=== PATIENT | male | born 1940 | race Caucasian/White ===

== ENCOUNTER → 2016-06-04 | Outpatient (CLI) | payer OTHER ==
[~2016-06-04] MED LIST: ASPIRIN325 PO; ASPIRIN81 M2 PO; AVAPRO 150 MG150 M1 PO; BACTROBAN CREAM30 G1 NASAL; BENICAR20 MG PO; CALCIUM CARBO1000 MG PO; CRESTOR40 MG PO; FERREX 150150 MG PO; FISH OIL 1,001000 M1 PO; MONOCAPS TABLE1 EACH PO; MULTI-VITAMIN1 EAC5 PO; PEPCID40 MG PO; PHISOHEX148 ML TOP; PLAVIX 75 MG TA75 M1 PO; SENNA PO; TOPROL XL25 MG PO; TOPROL XL50 MG PO; VICODIN 5-3001 EACH PO; VITAMIN D1000 UNI1 PO; VITAMIN K100 MCG PO
== END ==
LOC: CAT 14:33
DX: R91.1 Solitary pulmonary nodule (principal); I25.10 Atherosclerotic heart disease of native coronary artery without angina pectoris; J18.9 Pneumonia, unspecified organism; K80.80 Other cholelithiasis without obstruction

== ENCOUNTER → 2016-06-14 | Outpatient (CLI) | payer OTHER ==
[~2016-06-14] VITALS: Ht 177.8 cm; Wt 104.3 kg
--- NOTE | ~2016-06-14 | S ---
[facility] [address] [place] [address] SURGICAL PATH RPT PROCEDURE Name: JON JULIAN Room #: REG [facility]#: [id number] Admission: 06/14/16 Date of : 42 Discharge: Report #: [id number] Path Case #: [id number] PATHOLOGY REPORT COLLECTION DATE: 06/14/2016 RECEIVED DATE: 06/14/2016 SUBMITTING PHYS: Dr. 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 - Negative for microorganisms on GMS and AFB. - Mild steatohepatitis. 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 COMMENT: The case was sent to [facility], [place], [place], their report number [id number], (please see separate report for complete details). In summary, the report reads as follows: "There are abundant portal tracts which show moderate to marked lymphoplasmacytic infiltrate, focal ductopenia, mild bile ductular proliferation and patchy mild interface activity. One portal noncaseating granuloma is identified. In addition, the liver parenchyma shows approximately 20% macrovesicular steatosis, focal hepatocellular ballooning, occasional acidophilic bodies, mild lobular inflammation and occasional glycogenated nuclei with hepatocytes (all consistent with steatohepatitis). Trichrome special stain showed zone 3 perisinusoidal fibrosis, bridging fibrosis and focal nodular formation. Reticulin stain showed this same. PAS with and without diastase were negative for intracytoplasmic globules on zone 1. Iron stain showed minimal (1+) focal hemosiderosis in hepatocytes. Additional stains, special stains and immunostains were performed at the [facility]. Mild copper accumulation was noted on rhodanine stain performed there. GMS and AFB were negative for micro-organisms. Keratin 7 highlighted the presence of bile ductular proliferation. The portal plasma cells were predominantly IgG positive and only occasional plasma cells were IgM positive by immunostaining. The report further alludes to the following findings. The portal [facility] [address] [place] [address] SURGICAL PATH RPT PROCEDURE Name: JON JULIAN [id number]mission: 06/14/16 Date of : 42 Discharge: Report #: [id number] Path Case #: [id number] lymphoplasmacytic infiltrate with the single portal noncaseating granuloma, focal ductopenia, mild ductular proliferation, mild periportal copper accumulation in periportal hepatocytes plus the positive AMA are compatible with primary biliary cirrhosis. However, this patient had normal serum alkaline phosphatase level and the portal plasma cells were predominantly positive for IgG without evidence of increased IgM. Therefore, correlation with clinical manifestation and repeat testing for AMA is suggested to confirm the diagnosis of PBC. Alternatively, the histologic findings can also represent an adverse drug reaction or bile flow impairment. Correlation with ERCP or MRCP to rule out possibility of primary versus secondary sclerosing cholangitis is suggested. The presence of portal noncaseating granuloma includes a differential of sarcoidosis, infection, or an adverse drug reaction. If sarcoidosis is a clinical consideration, then correlation with chest x-ray, and serum MASSIMO levels is suggested. In addition, since the liver biopsy shows mild steatohepatitis, distinction between alcoholic hepatitis as well as metabolic disorders or adverse reaction requires clinical correlation. (IUV:csd; d/t: 07/08/2016) PATHOLOGIST: Tequila Saenz M.D. REPORT ELECTRONICALLY SIGNED BY: Tequila Saenz M.D. DATE/TIME: 07/08/2016 12:28 * * * * * * * * * * * * GROSS PATHOLOGY: The specimen is received in formalin, labeled "Jon Julian and liver biopsy." Received is a 1.2 x 0.5 x 0.2 cm aggregate of lopez-brown, rubbery, and irregular soft tissue fragments. The specimen is entirely submitted in cassette A1. (TTL; 06/14/2016) CLINICAL HISTORY: Cirrhosis INITIAL CPT CODE(S): A; 55678, 65576, 17751, 31699, 84838, 65261 Professional services performed by [facility] at [address] , [place] [address] Technical services performed by [facility] at [address] [place] [address], [address], [place] [address]. [address] [address] SURGICAL PATH RPT PROCEDURE Name: JON JULIAN Room #: REG [facility] [place]#: [id number] Admission: 06/14/16 Date of : 42 Discharge: Report #: [id number] Path Case #: [id number] [facility] [address] [address] PHONE: [phone] DIRECTOR: Mt Hammonds M.D. * * * END OF REPORT * * *
[2016-06-14 09:44] LABS: HEMATOCRIT 39.5 % (42.0-52.0); HEMOGLOBIN 13.1 gm/dL (14.0-18.0); MCH 30.5 pg (26.0-34.0); MCHC 33.2 % (28.0-37.0); MCV 91.6 fL (80.0-100.0); RBC 4.31 mil/uL (4.50-6.00); RDW 13.7 % (10.5-14.5); WBC 6.1 thou/uL (4.0-11.0)
[2016-06-14 09:53] LABS: CALCIUM 9.2 mg/dL (8.5-10.1); CREATININE 1.2 mg/dL (0.6-1.3); POTASSIUM 4.6 mmol/L (3.5-5.1)
[2016-06-14 09:58] LABS: INR 1.2
[2016-06-14 10:38] VITALS: BP 108/69
[2016-06-14 12:44] VITALS: BP 95/60
[2016-06-14 13:42] VITALS: BP 99/57
== END | disposition home or self-care (01) ==
LOC: ULTRA 09:04
PROVIDERS: Specialist
DX: K74.60 Unspecified cirrhosis of liver (principal)

== ENCOUNTER → 2019-10-27 | Outpatient (CLI) | payer OTHER | LOC: SJCVCIMAG 11:05 | DX: I08.3 Combined rheumatic disorders of mitral, aortic and tricuspid valves (principal); I45.10 Unspecified right bundle-branch block; I11.9 Hypertensive heart disease without heart failure; I25.810 Atherosclerosis of coronary artery bypass graft(s) without angina pectoris; E78.00 Pure hypercholesterolemia, unspecified; I65.23 Occlusion and stenosis of bilateral carotid arteries; E66.9 Obesity, unspecified; Z79.82 Long term (current) use of aspirin; Z95.1 Presence of aortocoronary bypass graft; Z79.899 Other long term (current) drug therapy; Z82.49 Family history of ischemic heart disease and other diseases of the circulatory system ==

== ENCOUNTER → 2020-05-10 | Outpatient (CLI) | payer OTHER | LOC: SJCVCIMAG 08:25 | PROVIDERS: ATTEND Internal Medicine Cardiovascular Disease | DX: I08.3 Combined rheumatic disorders of mitral, aortic and tricuspid valves (principal); I27.20 Pulmonary hypertension, unspecified; I65.23 Occlusion and stenosis of bilateral carotid arteries; R94.31 Abnormal electrocardiogram [ECG] [EKG]; I45.10 Unspecified right bundle-branch block; I11.9 Hypertensive heart disease without heart failure; E78.00 Pure hypercholesterolemia, unspecified; I42.9 Cardiomyopathy, unspecified; Z95.1 Presence of aortocoronary bypass graft; Z79.82 Long term (current) use of aspirin; Z79.899 Other long term (current) drug therapy ==

== ENCOUNTER → 2020-12-28 | Outpatient (CLI) | payer OTHER | LOC: SJCVC 10:35 | PROVIDERS: ATTEND Internal Medicine Cardiovascular Disease | DX: I25.10 Atherosclerotic heart disease of native coronary artery without angina pectoris (principal); I38 Endocarditis, valve unspecified; I65.23 Occlusion and stenosis of bilateral carotid arteries; I35.0 Nonrheumatic aortic (valve) stenosis; I77.9 Disorder of arteries and arterioles, unspecified; I10 Essential (primary) hypertension; E78.00 Pure hypercholesterolemia, unspecified; I42.9 Cardiomyopathy, unspecified; I25.5 Ischemic cardiomyopathy; E66.9 Obesity, unspecified; Z95.1 Presence of aortocoronary bypass graft; Z79.82 Long term (current) use of aspirin; Z79.899 Other long term (current) drug therapy; Z72.89 Other problems related to lifestyle; Z88.2 Allergy status to sulfonamides; Z88.1 Allergy status to other antibiotic agents ==

== ENCOUNTER → 2021-03-12 | Outpatient (CLI) | payer OTHER | LOC: SJCVCIMAG 08:32 | PROVIDERS: ATTEND Internal Medicine Cardiovascular Disease | DX: I08.0 Rheumatic disorders of both mitral and aortic valves (principal); I25.10 Atherosclerotic heart disease of native coronary artery without angina pectoris; I10 Essential (primary) hypertension ==